=== PATIENT | male | born 1995 | race Hispanic/Latino ===

== ENCOUNTER 2025-02-12 23:43 | Emergency (ER) | payer SELFPAY ==
[~2025-02-12] VITALS: Ht 180.3 cm; Wt 132.4 kg
--- NOTE | 2025-02-13 00:03 | ERN ---
ED Note History of Present Illness Stated Complaint: CHEST PAIN Chief Complaint: Chest Pain Time Seen by MD: 23:55 Time Seen by Midlevel: 23:55 Dictation: Mr. Swartz is a 29-year-old male with history of morbid obesity who presented to the emergency department this evening for evaluation of chest pain. He reports intermittent left-sided chest pain radiating to the left arm occurring intermittently for the past three days. He states that the pain occurs in the evening after he returns home from work. Pain at worse was 6/10. He denies having any shortness of breath, cough, fever, chills, palpitations, edema, abdo shraddha pain, nausea, vomiting, diarrhea, dysuria, headache, or dizziness. He does admit to using cocaine and marijuana. Allergies: Coded Allergies: No Known Allergies (Unverified Allergy, Unknown, 02/12/25) Home Meds Active Scripts Ciprofloxacin (Cipro) 500 Mg/5 Ml Etta.mc.rec, 500 MG PO BID, #28 CAP 0 Refills Prov:SUSAN AMIN NP 02/13/25 Omeprazole (Omeprazole) 40 Mg Capsule.dr, 1 CAP PO DAILY for 30 Days, #30 CAP 0 Refills Prov:SUSAN AMIN CARE PROFESSIONAL 02/13/25 Past Medical History Past Medical History: No Pertinent History Surgical History: None PSYCH History: no pertinent psych hx Social History: Negative RN Note Reviewed/Agreed w/PFSH: Yes Review of System Dictation REVIEW OF SYSTEMS: CONSTITUTIONAL: Patient denies fevers, chills, sweats and weight changes. EYES: Patient denies any visual symptoms. EARS, NOSE, AND THROAT: No difficulties with hearing. No symptoms of rhinitis or sore throat. CARDIOVASCULAR: Patient denies palpitations, orthopnea and paroxysmal nocturnal dyspnea. Reports left-sided chest pain radiating to left arm. Pain has been occurring intermittently for the past three days; occurring most often at night. At worse rated 6/10. RESPIRATORY: No dyspnea on exertion, no wheezing or cough. GI: No nausea, vomiting, diarrhea, constipation, abdominal pain, hematochezia or melena. : No urinary hesitancy or dribbling. No nocturia or urinary frequency. No abnormal urethral discharge. MUSCULOSKELETAL: No myalgias or arthralgias. NEUROLOGIC: No chronic headaches, no seizures. Patient denies numbness, tingling or weakness. PSYCHIATRIC: Patient denies problems with mood disturbance. No problems with anxiety. ENDOCRINE: No excessive urination or excessive thirst. DERMATOLOGIC: Patient denies any rashes or skin changes. Initial Vital Sign VS Vital Signs Date Time Temp Pulse Resp B/P (MAP) Pulse Ox O2 Delivery O2 Flow Rate FiO2 02/12/25 23:45 97.9 75 18 150/83 100 Room Air 02/13/25 01:01 0 21 Physical Exam Dictation Vital signs: Reviewed. Afebrile Constitutional: No acute distress. Non-toxic appearing. Head/Face: Normocephalic, atraumatic. Eyes: Periorbital areas with no swelling, redness, or edema. Lids and lashes are normal. Conjunctival injection is absent. Sclera anicteric. Pupils equal, round, reactive to light. ENT: Pinnas intact and no signs of trauma or erythema. Ear canals clear and no discharge. TMs no erythema. No nasal discharge or bleeding noted. Oropharynx with no exudate, redness, swelling, masses, exudates, or evidence of obstruction. Uvula midline. Mucous membranes moist. Neck: Trachea midline, no masses palpated, and no cervical lymphadenopathy. No swelling. Supple, full range of motion. Chest/Axilla: No tenderness, no crepitus, no paradoxical movement, no retractions. Cardiovascular: Regular rate, regular rhythm, no murmur, no gallops. Symmetric pulses. No peripheral edema. Chest pain three of 10. BP elevated 150/83. Twelve lead EKG reflects a sinus rhythm without ST elevation or depression Respiratory: Respirations even and unlabored. Lung sounds clear; no wheezes, rales or rhonchi. Room air SpO2 99% Gastrointestinal: Obese. No distention is appreciated. Bowel sounds are normal. No mass or organomegaly . There is no tenderness. No rebound. No rigi dity. No voluntary or involuntary guarding. No Sher's sign. Neurological: Normal speech, gross motor function intact, gross sensory function intact. No focal weakness/Paresthesia. Musculoskeletal/Extremities: All extremities have full range of motion, no pain or tenderness on palpation. Symmetric pulses. Integumentary: Intact. Skin is normal color, warm and dry. Cap refill less than 2 seconds. Results (Laboratory/Radiology) Laboratory/Radiology Laboratory Tests Test 02/13/25 00:07 02/13/25 01:27 02/13/25 01:29 White Blood Count 9.9 K/uL (4.8-10.8) Red Blood Count 4.98 MIL/uL (4.50-6.20) Hemoglobin 15.0 g/dL (14.0-18.0) Hematocrit 44.7 % (42-54) Mean Corpuscular Volume 89.8 fL (79-99) Mean Corpuscular Hemoglobin 30.1 pg (27.0-33.0) Mean Corpuscular Hemoglobin Concent 33.6 g/dL (32.0-36.0) Red Cell Distribution Width 12.2 % (11.0-15.5) Platelet Count 202 K/uL (130-400) Mean Platelet Volume 12.9 fL (7.5-10.5) H Immature Granulocyte % (Auto) 0.3 % (0-1) Neutrophils (%) (Auto) 22.9 % (40.0-77.0) L Lymphocytes (%) (Auto) 61.4 % (21.0-51.0) H Monocytes (%) (Auto) 12.1 % (3.0-13.0) Eosinophils (%) (Auto) 2.9 % (0.0-8.0) Basophils (%) (Auto) 0.4 % (0.0-5.0) Neutrophils # (Auto) 2.3 K/uL (1.8-7.7) Lymphocytes # (Auto) 6.1 K/uL (1.0-4.8) H Monocytes # (Auto) 1.2 K/uL (0.1-1.0) H Eosinophils # (Auto) 0.29 K/uL (0.00-0.70) Basophils # (Auto) 0.04 K/uL (0.00-0.20) Absolute Immature Granulocyte (auto 0.03 K/uL (0-1) Segmented Neutrophils % 32 % (40-70) L Lymphocytes % (Manual) 19 % (22-44) L Monocytes % (Manual) 16 % (2-9) H Eosinophils % (Manual) 3 % (1-6) Nucleated Red Blood Cells 0.0 % (0.0-0.19) Reactive Lymphocytes 30 % (0-0) H White Cell Morphology Comment See comments Platelet Morphology Comment ADEQUATE Red Blood Cell Morphology NORMAL Sodium Level 136 mmol/L (136-145) Potassium Level 4.1 mmol/L (3.5-5.1) Chloride Level 99 mmol/L (101-111) L Carbon Dioxide Level 31 mmol/L (21-32) Blood Urea Nitrogen 20 mg/dL (7-18) H Creatinine 1.3 mg/dL (0.5-1.3) Glomerular Filtration Rate Calc 76 mL/min (>90) Random Glucose 87 mg/dL (70-105) Total Calcium 9.6 mg/dL (8.5-10.1) Total Creatine Kinase 225 U/L (21-232) Troponin I High Sensitivity 7 ng/L (4-75) 7 ng/L (4-75) B-Type Natriuretic Peptide 10 pg/mL (0-100) Urine Color LIGHT-YELLOW (YELLOW) Urine Appearance CLEAR (CLEAR) Urine pH 5.5 (5.0-8.0) Urine Specific [place] 1.009 (1.001-1.031) Urine Protein NEGATIVE mg/dL (NEGATIVE) Urine Glucose (UA) NEGATIVE mg/dL (NEGATIVE) Urine Ketones NEGATIVE mg/dL (NEGATIVE) Urine Occult Blood NEGATIVE (NEGATIVE) Urine Nitrate NEGATIVE (NEGATIVE) Urine Bilirubin NEGATIVE mg/dL (NEGATIVE) Urine Urobilinogen 0.2 mg/dL (0.2-1.0) Urine Leukocyte Esterase 75 Sophia/uL (NEGATIVE) H Urine RBC 0-1 /HPF (0-1) Urine WBC 11-25 /HPF (0-1) H Urine Squamous Epithelial Cells RARE /HPF (0-2) Urine Bacteria None /HPF (None Seen) Labs Reviewed?: Yes EKG Comment: EKG Interpretation: Time Reviewed: 2347 Ventricular rate: 62 bpm MN Interval: 175 ms QRS duration: [address] segment elevation or depression. Clinical impression:Sinus rhythm EKG Reviewed and interpreted by Dr. Danni Kinsey X-RAY Comment: PATIENT: LINDSEY SWARTZ MR#: [id number] : 1995 SEX: M AGE: 29 LOCATION: [facility] ORDER STATUS: REG REPORT#: [id number] SERVICE 46 REASON: CHEST PAIN ORDERING PHYSICIAN: JACOB KINSEY MD PROCEDURE: CXR1VW - CHEST 1VW CHEST 1VW HISTORY: Chest pain COMPARISON: None FINDINGS: A frontal projection of the chest was obtained. No acute pulmonary infiltrates is seen. The heart is normal in size. Prominent interstitial markings are seen. No evidence of aortic calcification is seen. IMPRESSION: 1. No acute pulmonary infiltrate is seen. DICTATED BY: GAGE DAVIS MD DATE: 02/13/2537 ELECTRONICALLY SIGNED BY: GAGE DAVIS MD DATE: 02/13/255 ED Course ED Course Orders Procedure Category Date Status Time Vital Signs Per CPOE 02/12/25 Transmitted Routine 23:47 B-Type Natriuretic LAB 02/12/25 In Process Peptide 23:47 Chest 1vw RAD 02/12/25 Resulted 23:47 12 Lead Ekg Tracing- EKG 02/12/25 Logged Technical 23:47 Oxygen By Nc/Pulse Ox CPOE 02/12/25 Transmitted 23:47 Maintain Iv CPOE 02/12/25 Transmitted 23:47 Iv Insertion CPOE 02/12/25 Transmitted 23:47 Cardiac Monitoring CPOE 02/12/25 Transmitted 23:47 Pulse Oximetry With CPOE 02/12/25 Transmitted Vs And Prn 23:47 Cbc With Differential LAB 02/12/25 In Process 23:47 Activity: Br W/Brp CPOE 02/12/25 Transmitted With Assist 23:47 Creatine Kinase, Total LAB 02/12/25 Complete 23:47 Troponin I High LAB 02/12/25 Complete Sensitivity 23:47 Urinalysis Profile LAB 02/12/25 Complete 23:47 Basic Metabolic Panel LAB 02/12/25 Complete 23:47 Drug Screen Urine LAB 02/12/25 Logged 23:58 Aspirin 81mg Chew Tab PHA 02/13/25 Complete (Aspirin 81mg Chew 00:00 Manual Differential LAB 02/13/25 In Process 00:07 Troponin I High LAB 02/13/25 Complete Sensitivity 01:17 Culture Urine TERESITA 02/13/25 In Process 01:40 Current Medications Medications (Trade) Dose Ordered Sig/Jody Route PRN Reason Start Time Stop Time Status Last Admin Dose Admin Aspirin (Aspirin 81mg Chew Tab) 324 mg ONCE ONCE PO 02/13/25 00:00 02/13/25 00:04 DC 02/13/25 00:58 Vital Signs Date Time Temp Pulse Resp B/P (MAP) Pulse Ox O2 Delivery O2 Flow Rate FiO2 02/13/25 02:02 98.6 72 20 119/80 100 Room Air* 0 21 02/13/25 01:01 98.6 66 20 132/88 100 Room Air* 0 21 02/12/25 23:45 97.9 75 18 150/83 100 Room Air Uneventful ED course. Initial blood pressure elevated at 150 over 83; afebrile with room air SpO2 100%. Twelve lead EKG reflects a sinus rhythm without ST elevation or depression. Chest x-ray unremarkable with clear lung morales. Laboratory findings as noted below. No elevation of WBCs. H&H are stable. Troponin negative x 2, BNP is not elevated. UA positive leukocyte esterase and UWBC 11-25; culture pending. UDS positive cocaine and marijuana. While in ED he received dose aspirin 325. Chest pain resolving. Repeat blood pressure 119/74. Findings were discussed with patient and all questions were answered. He will need to follow up with his PCP HEART Score Response (Comments) Value History: Moderate suspicion (+1) 1 EKG: Normal 0 Age: < 45yrs (0) 0 Risk Factors: 1-2 risk factors (+1) 1 Initial Troponin: Normal limit (0) 0 HEART Score Risk: Low Risk for MACE (1-3) Total 2 Medical Decision Making MDM MDM: Differential diagnosis: ACS, UTI, polysubstance abuse Rationale: Tests considered and ordered secondary to shared decision making include: Lab, EKG Previous outside records reviewed: Old ER visits. Risk of complication and/or morbidity or mortality of patient management: None Medications-Per medication reconciliation Need for hospitalization: Patient does not meet criteria for hospitalization. Need for emergency major/minor surgery: No There are no social concerns with this patient. Prescription drug management Prescriptions will include symptomatic care Patient's prior external medical records from other ER visits were reviewed by me as indicated. Prior testing and results from previous visits were reviewed. Prior tests were taken into account with medical decision making and resource utilization, independent historian/historians were used to obtain complete medical history. I independently interpreted the test that were performed, results were reviewed by me and considered findings on radiology if ordered. Medical management and examination interpretation discussions were had by me with other qualified healthcare professionals as indicated for the patient's care. DX & DISP Disposition: Discharge Departure Impression: Primary Impression: Chest pain Additional Impressions: Polysubstance abuse, Gastritis, UTI (urinary tract infection) Condition: Stable Scripts Ciprofloxacin (Cipro) 500 Mg/5 Ml Etta.mc.rec 500 MG PO BID, #28 CAP 0 Refills Prov: SUSAN AMIN NP 02/13/25 Omeprazole (Omeprazole) 40 Mg Capsule.dr 1 CAP PO DAILY for 30 Days, #30 CAP 0 Refills Prov: SUSAN AMIN NP 02/13/25 Additional Instructions: Rest. Drink plenty of fluids. Avoid fatty/spicy foods. Start omeprazole 40 mg daily. Keep a log of your symptoms. Avoid use of cocaine or marijuana. For your urinary tract infection start Cipro 500 mg twice daily for 14 days. Follow up with your primary care physician. Return to the emergency department for any worsening of symptoms or concerns. Referrals: SELF,REFERRAL (PCP) Time of Disposition: 02:02 SUSAN AMIN NP Feb 13, 2025 00:03
[2025-02-13 00:30] LABS: CREATININE 1.3 mg/dL (0.5-1.3); POTASSIUM 4.1 mmol/L (3.5-5.1)
--- NOTE | 2025-02-13 00:45 | HMCIMG ---
CHEST 1VW HISTORY: Chest pain COMPARISON: None FINDINGS: A frontal projection of the chest was obtained. No acute pulmonary infiltrates is seen. The heart is normal in size. Prominent interstitial markings are seen. No evidence of aortic calcification is seen. IMPRESSION: 1. No acute pulmonary infiltrate is seen.
[2025-02-13 00:52] LABS: BASOPHILS # (AUTO) 0.04 K/uL (0.00-0.20); BASOPHILS % (AUTO) 0.4 % (0.0-5.0); EOSINOPHILS # (AUTO) 0.29 K/uL (0.00-0.70); EOSINOPHILS % (AUTO) 2.9 % (0.0-8.0); HEMATOCRIT 44.7 % (42-54); IMMATURE GRANULOCYTE ABSOLUTE 0.03 K/uL (0-1); LYMPHOCYTES # (AUTO) 6.1 K/uL (1.0-4.8); LYMPHOCYTES % (AUTO) 61.4 % (21.0-51.0); MEAN CORPUSCULAR HEMOGLOBIN 30.1 pg (27.0-33.0); MEAN CORPUSCULAR HGB CONC 33.6 g/dL (32.0-36.0); MEAN CORPUSCULAR VOLUME 89.8 fL (79-99); MONOCYTES # (AUTO) 1.2 K/uL (0.1-1.0); MONOCYTES % (AUTO) 12.1 % (3.0-13.0); NEUTROPHILS # (AUTO) 2.3 K/uL (1.8-7.7); NEUTROPHILS % (AUTO) 22.9 % (40.0-77.0); PLATELET COUNT (AUTO) 202 K/uL (130-400); RED BLOOD CELL COUNT(AUTO) 4.98 MIL/uL (4.50-6.20); RED CELL DISTRIBUTION WIDTH 12.2 % (11.0-15.5); WHITE BLOOD COUNT (AUTO) 9.9 K/uL (4.8-10.8)
[2025-02-13 00:58] LABS: B-TYPE NATRIURETIC PEPTIDE 10 pg/mL (0-100)
[2025-02-13] MEDS: ASPIRIN 81MG CHEW TAB PO ONE (00:58)
[2025-02-13 01:28] LABS: EOSINOPHILS % (MANUAL) 3 % (1-6); LYMPHOCYTES % (MANUAL) 19 % (22-44); MONOCYTES % (MANUAL) 16 % (2-9); REACTIVE LYMPHOCYTES 30 % (0-0); SEGMENTED NEUTROPHILS % 32 % (40-70); TOTAL CELLS COUNTED 100
[2025-02-13 01:33] LABS: PLATELET MORPHOLOGY COMMENT ADEQUATE
[2025-02-13 01:40] LABS: ADD UA MICROSCOPIC YES; APPEARANCE,URINE CLEAR (CLEAR); BILIRUBIN,URINE NEGATIVE (NEGATIVE); COLOR,URINE LIGHT-YELLOW (YELLOW); GLUCOSE, URINE (UA) NEGATIVE (NEGATIVE); KETONES,URINE NEGATIVE (NEGATIVE); LEUKOCYTE ESTERASE ,URINE 75 Leu/uL (NEGATIVE); NITRATE,URINE NEGATIVE (NEGATIVE); OCCULT BLOOD,URINE NEGATIVE (NEGATIVE); PH,URINE 5.5 (5.0-8.0); PROTEIN,URINE NEGATIVE (NEGATIVE); UROBILINOGEN,URINE 0.2 mg/dL (0.2-1.0)
[2025-02-13 01:42] LABS: MUCUS,URINE RARE LPF (None Seen); RBC,URINE 0-1 /HPF (0-1); SQUAMOUS EPITHELIAL CELL,UR RARE /HPF (0-2)
[2025-02-13] MEDS ORDERED: OMEP40CA21 PO (01:55)
[2025-02-13 02:02] VITALS: BP 119/80; PULSE 72; RESP 20; TEMP 98.6; O2SAT 100
[2025-02-13] MEDS ORDERED: CIPR500S4 PO (02:03)
[2025-02-13 02:26] LABS: AMPHET/METH SCREEN,URINE NEGATIVE (NEGATIVE); BARBITURATE SCREEN, URINE NEGATIVE (NEGATIVE); BENZODIAZEPINES SCREEN,URINE NEGATIVE (NEGATIVE); CANNABINOID SCREEN,URINE POSITIVE (NEGATIVE); COCAINE SCREEN,URINE NEGATIVE (NEGATIVE); OPIATE SCREEN,URINE NEGATIVE (NEGATIVE); PHENCYCLIDINE SCREEN,URINE NEGATIVE (NEGATIVE)
--- NOTE | 2025-02-13 13:45 | EKG ---
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
== END 2025-02-13 02:37 | disposition home or self-care (01) ==
LOC: EDH 23:43
DX: R07.89 Other chest pain (principal); K29.70 Gastritis, unspecified, without bleeding; N39.0 Urinary tract infection, site not specified; F19.10 Other psychoactive substance abuse, uncomplicated; Z79.899 Other long term (current) drug therapy
CPT/HCPCS: 36415; 71045; 80048; 80305; 81001; 82550; 83880; 84484; 85025; 87086; 93005; 99285

== ENCOUNTER 2025-04-04 18:52 | Emergency (ER) | payer SELFPAY ==
[~2025-04-04] VITALS: Ht 180.3 cm; Wt 129.3 kg
[~2025-04-04 18:52] MED LIST: CIPR500S4 PO; OMEP40CA21 PO
[2025-04-04] MEDS: LIDOCAINE HCL 1% 20 ML VIAL INJ STA (19:27)
--- NOTE | 2025-04-04 19:55 | ERN ---
ED Note History of Present Illness Stated Complaint: BLEEDING RIGHT HAND CAUSED BY LACERATION Chief Complaint: Laceration/Avulsion Time Seen by MD: 19:00 Time Seen by Midlevel: 19:05 Dictation: 30-year-old male with no past medical history coming in for lack to the right hand while jumping a fence. Patient states he is current with his tetanus vaccine. No other complaints. Allergies: Coded Allergies: No Known Allergies (Unverified Allergy, Unknown, 02/12/25) Home Meds Active Scripts Ciprofloxacin (Cipro) 500 Mg/5 Ml Etta.mc.rec, 500 MG PO BID, #28 CAP 0 Refills Prov:SUSAN AMIN NP 02/13/25 Omeprazole (Omeprazole) 40 Mg Capsule.dr, 1 CAP PO DAILY for 30 Days, #30 CAP 0 Refills Prov:SUSAN AMIN MIGRATORY GAME BIRD BIOLOGIST 02/13/25 Past Medical History Past Medical History: No Pertinent History Surgical History: None Social History: Negative Review of System Dictation Constitutional: Negative for fever,chills, and weight loss Eyes: Negative for injury, pain,redness, and discharge ENT: Negative for injury,pain or swelling Cardiovascular: Negative for chest pain, palpitations, and edema Respiratory: Negative for shortness of breath, cough, and wheezing, Abdomen/GI: Negative for abdominal pain, nausea, vomiting, diarrhea, and constipation Back: Negative for injury and pain : Negative for injury, bleeding and discharge MS/Extremity: Negative for injury and deformity Skin: Laceration to the right hand Neuro: Negative for headache, weakness, numbness, tingling, and seizure Psych: Negative for suicide ideation, homicidal ideation, and hallucinations Review of Systems: was completed Initial Vital Sign VS Vital Signs Date Time Temp Pulse Resp B/P (MAP) Pulse Ox O2 Delivery O2 Flow Rate FiO2 04/04/25 18:58 98.8 78 18 151/80 100 04/04/25 19:22 Room Air* 0 21 Physical Exam Dictation General: awake, alert, NAD Head/Face: Normocephalic, atraumatic Eyes: PERRL, EOMI, vision at baseline ENT: oral cavity clear, TMs clear, no signs of infection Neck: Trachea midline, supple, no nuchal rigidity Cardiovascular: RRR, normal S1/S2, No MRGs, no JVD Respiratory: CTAB, no respiratory distress, No rales or wheezes Abdomen: Soft, non-tender, non-distended, normal bowel sounds, no guarding or rebound. Skin: Warm, dry, normal turgor, no rash, 2.5 cm laceration to the right hand between the thumb and the index finger MS/Extremity: Pulses equal, no cyanosis, neurovascular intact, FROM Neuro: COAx4, GCS 15, strength 5/5, CN 2-12 intact, normal cerebellar exam, normal gait, Psych: Normal behavior, mood, and affect normal ED Course ED Course Orders Procedure Category Date Status Time Lidocaine Hcl 1% 20ml PHA 04/04/25 Complete Vial (Lidocaine Hc 19:16 Current Medications Medications (Trade) Dose Ordered Sig/Jody Route PRN Reason Start Time Stop Time Status Last Admin Dose Admin Lidocaine HCl (Lidocaine HCl 1% 20ml Vial) ONCE STAT INJ 04/04/25 19:16 04/04/25 19:18 DC 04/04/25 19:27 Vital Signs Date Time Temp Pulse Resp B/P (MAP) Pulse Ox O2 Delivery O2 Flow Rate FiO2 04/04/25 19:22 98.8 78 18 151/80 100 Room Air* 0 21 04/04/25 18:58 98.8 78 18 151/80 100 Medical Decision Making MDM MDM: 30-year-old male with no past medical history coming in for lack to the r ight hand while jumping a fence. Patient states he is current with his tetanus vaccine. No other complaints. See procedure note for lack repair. Decided because was patient wound care and when to return to the hospital. Patient verbalized understanding, answered all questions. Differential diagnosis: Laceration, avulsion Rationale: Tests considered and ordered secondary to shared decision making include: Previous outside records reviewed: Old ER visits. Risk of complication and/or morbidity or mortality of patient management: None Medications-Per medication reconciliation Need for hospitalization: Patient does not meet criteria for hospitalization. Need for emergency major/minor surgery: No There are no social concerns with this patient. Prescription drug management Prescriptions will include symptomatic care Patient's prior external medical records from other ER visits were reviewed by me as indicated. Prior testing and results from previous visits were reviewed. Prior tests were taken into account with medical decision making and resource utilization, independent historian/historians were used to obtain complete medical history. I independently interpreted the test that were performed, results were reviewed by me and considered findings on radiology if ordered. Medical management and examination interpretation discussions were had by me with other qualified healthcare professionals as indicated for the patient's care. Procedure Wound Location: upper extremity (Right hand) Wound's Depth, Shape: superficial Wound Explored: clean Betadine Prep?: Yes Anesthesia: 1% Lidocaine Volume Anesthetic (ccs): 8 Wound Debrided: minimal Wound Repaired With: sutures Suture Size/Type: 4:0 Number of Sutures: 7 DX & DISP Disposition: Discharge Departure Impression: Primary Impression: Laceration Condition: Stable Additional Instructions: CLEANED WOUND WITH SOAP AND WATER. KEEP THE AREA DRY. RETURN TO THE HOSPITAL IF YOU HAVE ANY SIGNS OF INFECTION. OTHERWISE RETURN TO THE HOSPITAL IN 7-10 DAYS TO REMOVE SUTURES. Referrals: SELF,REFERRAL (PCP) Time of Disposition: 19:54 I have reviewed the case, and I agree with, Diagnosis and Plan POLINA ARRIAZA NP April 04, 2025 19:55
[2025-04-04 20:11] VITALS: BP 138/74; PULSE 72; RESP 18; TEMP 98.8; O2SAT 100
--- NOTE | 2025-04-04 20:11 | NUR ---
WOUND SUTURED, PT TOLERATE WELL
== END 2025-04-04 20:12 | disposition home or self-care (01) ==
LOC: EDH 18:52
DX: S61.411A Laceration without foreign body of right hand, initial encounter (principal); Z79.899 Other long term (current) drug therapy; W45.8XXA Other foreign body or object entering through skin, initial encounter; Y93.39 Activity, other involving climbing, rappelling and jumping off; Y92.89 Other specified places as the place of occurrence of the external cause; Y99.8 Other external cause status
CPT/HCPCS: 12001; 99282